=== PATIENT | female | born 1990 | race Caucasian/White ===

== ENCOUNTER 2017-04-20 21:59 | Emergency (ER) | payer SELFPAY ==
[2017-04-20] MEDS ORDERED: ALBUTEROL SULFATE HFA (90 MCG/PUFF) 8 GM MDI (1 MDI/ER DISP) IH PRN (22:56)
[2017-04-20] MEDS ORDERED: DEXAMETHASONE SOD PHOS INJ 10 MG/1 ML VIAL IM ONE (22:58)
--- NOTE | 2017-04-20 23:03 | ER Document Report ---
ED General - General Chief Complaint: Congestion Stated Complaint: THROAT,CHEST,EAR PAIN Time Seen by Provider: 04/20/17 22:47 Notes: Patient is a 18-year-old female presents with complaint of cough congestion sore throat and ear pain. Patient says symptoms started last 24 hours. She initially just had congestion but now has a lot of coughing and sore throat. She has a smoker. She says she stopped smoking since her symptoms started. She does not take any medications. She is otherwise healthy. She has no medical problems. She has no medical allergies. She says that she did start some dzwj-[id number]-iovoogt medication called Nexphed. She says her symptoms are worsening. No fever. TRAVEL OUTSIDE OF THE [place] IN LAST 30 DAYS: No - Related Data Allergies/Adverse Reactions: Shellfish * [Shellfish] Allergy (Intermediate, Verified 12/12/14 12:52) Past Medical History - Social History Smoking Status: Current Every Day Smoker Frequency of alcohol use: None Drug Abuse: None Family History: Reviewed & Not Pertinent Patient has suicidal ideation: No Patient has homicidal ideation: No Renal/ Medical History: Denies: Hx Peritoneal Dialysis Past Surgical History: Reports: Hx Oral Surgery - Immunizations Immunizations up to date: No Hx Diphtheria, Pertussis, Tetanus Vaccination: Yes Review of Systems - Review of Systems Notes: My Normal Review Basic REVIEW OF SYSTEMS: CONSTITUTIONAL : Denies fever, chills, or sweats. Denies recent illness. EENT: Nasal congestion, sore throat CARDIOVASCULAR: Chest pain with cough. RESPIRATORY: cough GASTROINTESTINAL: Denies abdominal pain. Denies nausea, vomiting, or diarrhea. Denies constipation. Last BM: MUSCULOSKELETAL: Denies neck or back pain or joint pain or swelling. SKIN: Denies rash or skin lesions. NEUROLOGICAL: Denies altered mental status or loss of consciousness. Denies headache. Denies weakness or paralysis or loss of use of either side. Denies problems with gait or speech. Denies sensory or motor loss. ALL OTHER SYSTEMS REVIEWED AND NEGATIVE. Physical Exam - Vital signs Vitals: Temp Pulse Resp BP Pulse Ox 98.5 F 103 H 16 148/104 H 97 04/20/17 22:06 04/20/17 22:06 04/20/17 22:06 04/20/17 22:06 04/20/17 22:06 - Notes Notes: General Appearance: Well nourished, alert, cooperative, no acute distress, no obvious discomfort. Audible nasal congestion. Obvious congestion on physical exam. Cough. Vitals: reviewed, See vital signs table. Head: no swelling or tenderness to the head Eyes: PERRL, EOMI, Conjuctiva clear Mouth: No decreasd moisture Ears: Tense tympanic membranes without significant erythema consistent with sreous otitis media. Throat: No tonsillar inflammation, No airway obstruction, No lymphadenopathy Neck: Supple, no neck tenderness, Lungs: No wheezing, No rales, No rhonci, No accessory muscle use, good air exchange bilaterally. Heart: Normal rate, Regular rythm, No murmur, no rub Extremities: strength 5/5 in all extremities, good pulses in all extremities, no swelling or tenderness in the extremities, no edema. Skin: warm, dry, appropriate color, no rash Neuro: speech clear, oriented x 3, normal affect, responds appropriately to questions. Course - Vital Signs Vital signs: Temp Pulse Resp BP Pulse Ox 98.5 F 103 H 16 148/104 H 97 04/20/17 22:06 04/20/17 22:06 04/20/17 22:06 04/20/17 22:06 04/20/17 22:06 - Transfer of Care Notes: 04/20/17 23:03 Patient has symptoms consistent with a URI with bronchitis. She has a lot of congestion on exam. Pharynx is not erythematous red. Her TMs are tense and are consistent with a serous otitis media. There is no evidence of a bacterial infectious otitis media. I will give her a dose of Decadron. I will have her stop taking the [id number] next ahead and place her on a higher dose of Sudafed. I encouraged her to take water when taking this. I encouraged her to continue to stop smoking. I will give her an inhaler being that she has recurrent dry cough and is a smoker. I encouraged to return to ER immediately if she has worsening of her symptoms, fevers, or feels unwell. Patient agrees with plan and will be discharged home. Dictation of this chart was performed using voice recognition software; therefore, there may be some unintended grammatical errors. Discharge - Discharge Clinical Impression: Bronchitis URI (upper respiratory infection) Qualifiers: URI type: unspecified URI Qualified Code(s): J06.9 - Acute upper respiratory infection, unspecified Condition: Good Disposition: HOME, SELF-CARE Additional Instructions: BRONCHITIS: You have acute bronchitis. This disease is an infection or inflammation of the air passageways in your lungs. Symptoms usually include cough, low grade fever, shortness of breath, and wheezing. The cough usually persists for a couple of weeks. Most cases of bronchitis get better without antibiotics. We prescribe antibiotics when we believe bacteria are damaging your airways, or if there's high risk the bronchitis will worsen into pneumonia. Increase your fluid intake. A cool mist humidifier may make your lungs more comfortable. An expectorant (cough medicine that loosens phlegm) can help. If you smoke, STOP!!! Recovery from bronchitis can be somewhat slow, but you should see improvement within a day or two. Repeated episodes of bronchitis may result in lung damage -- for example, chronic bronchitis, recurrent pneumonias, or emphysema. Call the doctor if you develop increasing fever, shortness of breath, chest pain, bloody sputum, or otherwise worsen. If you have not improved at all after several days, contact the physician. DECONGESTANT MEDICATION: A decongestant medicine has been prescribed. Often this medicine is combined in the same tablet with an antihistamine or expectorant. This type of medicine is helpful in treating a bad cold or sinus condition, as well as in treatment of the nasal congestion of hay fever. It is not of much benefit for lung infections. Decongestant medicines are related to stimulants. They can cause an increase in blood pressure and heart rate. Persons with heart disease and high blood pressure should not take decongestants without discussing this with the physician. INHALED BRONCHODILATORS: You have received a treatment of and/or prescription for an inhaled bronchodilator -- a medication which stimulates the airways in the lung to dilate. This improves the flow of air in asthma, bronchitis, and emphysema. These medicines have some similarity to adrenaline, and can cause similar side effects: shakiness, racing heart, and a sense of nervousness. These side effects decrease with time. Contact your doctor if these side effects are severe. Do not over-use the medicine. Too-frequent use of the inhaler may make it ineffective. Call your doctor if the inhaler is not controlling your symptoms at the prescribed doses. STEROID MEDICATION: You have been given an injection of or oral medicine of the cortisone/ steroid class. This medication is used to control inflammation or allergy. Izaiah t is usually only given for a short period of time, until the acute process subsides. There are usually no side effects from short-term use of cortisone-like medications. Some persons feel an increased sense of well-being and are not sleepy at bedtime. Long-term use of cortisone medications is best avoided, unless required for a severe condition. If your condition does not remit, or relapses after the course of corticosteroid medication, you should consult your physician. SMOKING: If you smoke, you should stop smoking. The tar and chemicals in cigarette smoke are harmful. Smoking has been shown to cause: emphysema chronic bronchitis lung cancer mouth and throat cancer stomach and pancreas cancer premature aging defects In addition, smoking increases ear and lung infections in children of smokers. FOLLOW-UP CARE: If you have been referred to a physician for follow-up care, call the physician s office for an appointment as you were instructed or within the next two days. If you experience worsening or a significant change in your symptoms, notify the physician immediately or return to the Emergency Department at any time for re-evaluation. Please return to the ER immediately if you develop fevers, difficulty breathing , vomiting, or feel that you are getting worse. Please use the inhaler as 2 puffs every 4 hours as needed for cough and/or wheezing. Prescriptions: Pseudoephedrine HCl 30 mg PO TID #20 tablet
[2017-04-20 23:19] VITALS: BP 136/96
== END 2017-04-20 23:20 | disposition home or self-care (01) ==
LOC: ER 21:59
DX: J06.9 Acute upper respiratory infection, unspecified (principal); J40 Bronchitis, not specified as acute or chronic; J02.9 Acute pharyngitis, unspecified; R05 Cough; R07.89 Other chest pain; R09.81 Nasal congestion; H92.09 Otalgia, unspecified ear; F17.200 Nicotine dependence, unspecified, uncomplicated; Z91.013 Allergy to seafood
CPT/HCPCS: 99283; 96372; J1100; J3490

== ENCOUNTER 2017-11-05 11:10 | Emergency (ER) | payer SELFPAY ==
[2017-11-05] MEDS ORDERED: ONDANSETRON 4 MG TAB.RAPDIS PO ONE (11:34)
[2017-11-05] MEDS ORDERED: HYDROCODONE/ACETAMINOPHEN 5-325 MG TABLET PO ONE (11:34)
[2017-11-05 11:58] LABS: ABSOLUTE BASOPHILS # (AUTO) 0.1 10^3/uL (0.0-0.2); ABSOLUTE EOSINOPHILS # (AUTO) 0.2 10^3/uL (0.0-0.6); ABSOLUTE LYMPHOCYTES (AUTO) 2.5 10^3/uL (0.5-4.7); ABSOLUTE MONOCYTES (AUTO) 0.6 10^3/uL (0.1-1.4); ABSOLUTE NEUT (AUTO) 6.4 10^3/uL (1.7-8.2); BASOPHILS % (AUTO) 0.9 % (0-2); EOSINOPHILS % (AUTO) 1.9 % (0-6); HEMATOCRIT 38.4 % (36.0-47.0); HEMOGLOBIN 13.2 g/dL (12.0-15.5); HGB HCT DIFFERENCE 1.2; LYMPHOCYTES % (AUTO) 25.4 % (13-45); MEAN CORPUSCULAR HEMOGLOBIN 30.4 pg (27.0-33.4); MEAN CORPUSCULAR HGB CONC 34.5 g/dL (32.0-36.0); MEAN CORPUSCULAR VOLUME 88 fl (80-97); MONOCYTES % (AUTO) 6.2 % (3-13); RED BLOOD COUNT 4.35 10^6/uL (3.72-5.28); RED CELL DISTRIBUTION WIDTH 14.5 % (11.5-14.0); SEGMENTED NEUTROPHILS % (AUTO) 65.6 % (42-78); WHITE BLOOD COUNT 9.8 10^3/uL (4.0-10.5)
[2017-11-05 12:03] LABS: APPEARANCE,URINE CLEAR; BILIRUBIN,URINE NEGATIVE (NEGATIVE); GLUCOSE, URINE NEGATIVE (NEGATIVE); KETONES,URINE NEGATIVE (NEGATIVE); LEUKOCYTE ESTERASE,URINE NEGATIVE (NEGATIVE); NITRITE,URINE NEGATIVE (NEGATIVE); PROTEIN,URINE NEGATIVE (NEGATIVE); URINE SPECIFIC GRAVITY 1.019
[2017-11-05 12:15] LABS: ALANINE AMINOTRANSFERASE 33 U/L (9-52); ALBUMIN 4.4 g/dL (3.5-5.0); ALKALINE PHOSPHATASE 59 U/L (38-126); ANION GAP 11 (5-19); ASPARTATE AMINO TRANSFERASE 22 U/L (14-36); BILIRUBIN,DIRECT 0.1 mg/dL (0.0-0.4); BILIRUBIN,TOTAL 0.7 mg/dL (0.2-1.3); BLOOD UREA NITROGEN 17 mg/dL (7-20); CALCIUM 10.2 mg/dL (8.4-10.2); CARBON DIOXIDE 27 mmol/L (22-30); CHLORIDE 104 mmol/L (98-107); CREATININE RESULT 0.83 mg/dL (0.52-1.25); GLUCOSE 91 mg/dL (75-110); POTASSIUM 4.2 mmol/L (3.6-5.0); SODIUM 141.8 mmol/L (137-145); TOTAL PROTEIN 7.2 g/dL (6.3-8.2)
--- NOTE | 2017-11-05 13:53 | RADIOLOGY REPORT (SQ) ---
EXAM DESCRIPTION: CT ABD/PELVIS NO ORAL OR IV COMPLETED DATE/TIME: 11/05/2017 1:20 pm REASON FOR STUDY: left flank pain COMPARISON: Pelvic ultrasound 07/20/2012, 08/09/2011 TECHNIQUE: CT scan of the abdomen and pelvis performed without intravenous or oral contrast. Images reviewed with lung, soft tissue, and bone windows. Reconstructed coronal and sagittal MPR images revi ewed. All images stored on PACS. All CT scanners at this facility use dose modulation, iterative reconstruction, and/or weight based d osing when appropriate to reduce radiation dose to as low as reasonably achievable (ALARA). [facility]: Dose Right [facility]: CareDose [facility]: Dose Right [facility]: Teradose 4D [facility]: Smart Nu-B-2B RADIATION DOSE: CT Rad equipment meets quality standard of care and radiation dose reduction techniq ues were employed. CTDIvol: 22.7 mGy. DLP: 1256 mGy-cm.mGy. LIMITATIONS: None. FINDINGS: LOWER CHEST: Small hiatal hernia. Minimal rays basilar atelectasis. NON-CONTRASTED LIVER, SPLEEN, ADRENALS: Evaluation limited by lack of IV contrast. No identified sign ificant masses. PANCREAS: No masses. No peripancreatic inflammatory changes. GALLBLADDER: No identified stones by CT criteria. No inflammatory changes to suggest cholecystitis. RIGHT KIDNEY AND URETER: No suspicious masses. Assessment limited by lack of IV contrast. No signif icant calcifications. No hydronephrosis or hydroureter. LEFT KIDNEY AND URETER: No suspicious masses. Assessment limited by lack of IV contrast. No signifi cant calcifications. No hydronephrosis or hydroureter. AORTA AND RETROPERITONEUM: No aneurysm. No retroperitoneal masses or adenopathy. BOWEL AND PERITONEAL CAVITY: No obvious masses or inflammatory changes. No free fluid. APPENDIX: Normal. PELVIS, BLADDER, AND ABDOMINAL WALL:No free fluid. No adenopathy. Uterus, right ovary unremarkable. In the left adnexa, a 6.6 x 6.6 cm cyst is present, either a left ovarian cyst or para ovarian cyst . Small fat containing umbilical hernia BONES: No significant findings. OTHER: No other significant finding. IMPRESSION: Left ovary a cyst or paraovarian cyst. No CT evidence of urinary stones, hydronephrosis, or hydroureter. COMMENT: Quality ID # [id number]: Final reports with documentation of one or more dose reduction techniques (e.g., Automated exposure control, adjustment of the mA and/or kV according to patient size, use of iterative reconstruction technique) TECHNICAL DOCUMENTATION: JOB ID: [id number] [employer]- All Rights Reserved
--- NOTE | 2017-11-05 14:18 | ER Document Report ---
ED General - General Chief Complaint: Pain With Urination Stated Complaint: ABDOMINAL PAIN Time Seen by Provider: 11/05/17 11:33 Mode of Arrival: Ambulatory Information source: Patient Notes: Patient presents with 4-5 days of left lower quadrant pain that radiates to her back. She states it is crampy and intermittent. Nothing makes it better or worse. She has some burning with urination but no blood in her urine. No problems with bowel movements. No vomiting. Pain is been moderate in severity. No vaginal bleeding or discharge. TRAVEL OUTSIDE OF THE [place] IN LAST 30 DAYS: No - Related Data Allergies/Adverse Reactions: Shellfish * [Shellfish] Allergy (Intermediate, Verified 11/05/17 11:10) Home Medications: Current Home Medications B12/FA/D3/Calc Cit/Zn Aa Chelt [Rx Balance Int Capsule] 1 tab PO DAILY 11/05/17 [History] Past Medical History - General Information source: Patient Last Menstrual Period: 10/24/17 - Social History Smoking Status: Current Every Day Smoker Frequency of alcohol use: Occasional Drug Abuse: None Family History: Reviewed & Not Pertinent Patient has suicidal ideation: No Patient has homicidal ideation: No - Past Medical History Cardiac Medical History: Reports: Hx Hypertension Pulmonary Medical History: Reports: Hx Asthma Renal/ Medical History: Denies: Hx Peritoneal Dialysis Past Surgical History: Reports: Hx Oral Surgery - Immunizations Immunizations up to date: No Hx Diphtheria, Pertussis, Tetanus Vaccination: Yes Review of Systems - Review of Systems Constitutional: denies: Chills, Fever Cardiovascular: denies: Chest pain, Palpitations Respiratory: denies: Cough, Short of breath -: Yes All other systems reviewed and negative Physical Exam - Vital signs Vitals: Temp Pulse Resp BP Pulse Ox 98.8 F 97 16 146/98 H 95 11/05/17 11:16 11/05/17 11:16 11/05/17 11:16 11/05/17 11:16 11/05/17 11:16 Interpretation: Normal - General General appearance: Appears well, Alert In distress: None - HEENT Head: Normocephalic, Atraumatic Eyes: Normal Pupils: PERRL - Respiratory Respiratory status: No respiratory distress Chest status: Nontender Breath sounds: Normal Chest palpation: Normal - Cardiovascular Rhythm: Regular Heart sounds: Normal auscultation Murmur: No - Abdominal Inspection: Normal Distension: No distension Bowel sounds: Normal Tenderness: Tender - Some mild left lower quadrant tenderness to palpation. No rebound or guarding. Organomegaly: No organomegaly - Back Back: Normal, Nontender - Extremities General upper extremity: Normal inspection, Nontender, Normal color, Normal ROM , Normal temperature General lower extremity: Normal inspection, Nontender, Normal color, Normal ROM , Normal temperature, Normal weight bearing. No: Jared's sign - Neurological Neuro grossly intact: Yes Cognition: Normal Orientation: AAOx4 [place] Coma Scale Eye Opening: Spontaneous [place] Coma Scale Verbal: Oriented [place] Coma Scale Motor: Obeys Commands [place] Coma Scale Total: 15 Speech: Normal Motor strength normal: LUE, RUE, LLE, RLE Sensory: Normal - Psychological Associated symptoms: Normal affect, Normal mood - Skin Skin Temperature: Warm Skin Moisture: Dry Skin Color: Normal Course - Vital Signs Vital signs: Temp Pulse Resp BP Pulse Ox 98.8 F 97 16 146/98 H 95 11/05/17 11:16 11/05/17 11:16 11/05/17 11:16 11/05/17 11:16 11/05/17 11:16 - Laboratory Result Diagrams: 11/05/17 11:44 11/05/17 11:44 Laboratory results interpreted by me: 11/05/17 11/05/17 11:44 11:44 RDW 14.5 H Urine Urobilinogen 4.0 H - Diagnostic Test Radiology reviewed: Image reviewed, Reports reviewed - CT shows no evidence of acute pathology other than a left ovarian cyst Discharge - Discharge Clinical Impression: Left ovarian cyst Condition: Stable Disposition: HOME, SELF-CARE Instructions: Ovarian Cyst ([facility]) Additional Instructions: Your blood pressure is elevated. Please have this rechecked within 1 week by your doctor. Prescriptions: Hydrocodone/Acetaminophen [[place] 5-325 mg Tablet] 1 tab PO Q6 PRN #14 tablet PRN Reason: Forms: Return to Work, Elevated Blood Pressure Referrals: EL AVILEZ MD [COMMUNITY BASED STAFF] - Follow up as needed
[2017-11-05 14:24] VITALS: BP 147/105
== END 2017-11-05 14:25 | disposition home or self-care (01) ==
LOC: ER 11:10
DX: N83.202 Unspecified ovarian cyst, left side (principal); R10.32 Left lower quadrant pain; R30.0 Dysuria; I10 Essential (primary) hypertension; J45.909 Unspecified asthma, uncomplicated; F17.200 Nicotine dependence, unspecified, uncomplicated; Z91.013 Allergy to seafood
CPT/HCPCS: 99284; 36415; 85025; 81025; 80053; 81001; 74176; S0119

== ENCOUNTER 2019-05-30 14:14 | Emergency (ER) | payer SELFPAY ==
[2019-05-30] MEDS ORDERED: IBUPROFEN 400 MG TABLET PO ONE (16:21)
--- NOTE | 2019-05-30 16:21 | ER Document Report ---
ED Medical Screen (RME) - General Chief Complaint: Leg Pain Stated Complaint: LEG PAIN Time Seen by Provider: 05/30/19 16:19 Mode of Arrival: Ambulatory Information source: Patient Notes: 28-year-old female presented to ED for an infected tattoo to the left side. She states the tattoo was done on Thursday the redness and discomfort started on and has steadily increased since then. She states she did have a fever over the last couple days. She states she took ibuprofen 400 mg at noon today. She denies any past medical history. She is a former smoker does not smoke now and does not drink or do any kind of drugs. We will get blood urine and give her an additional 400 mg of ibuprofen and she will get seen by another provider. I have greeted and performed a rapid initial assessment of this patient. A comprehensive ED assessment and evaluation of the patient, analysis of test results and completion of medical decision making process will be conducted by an additional ED providers. Dictation of this chart was performed using voice recognition software; therefore, there may be some unintended grammatical errors. TRAVEL OUTSIDE OF THE [place] IN LAST 30 DAYS: No - Related Data Allergies/Adverse Reactions: Shellfish * [Shellfish] Allergy (Intermediate, Verified 11/05/17 11:10) Past Medical History - Past Medical History Cardiac Medical History: Reports: Hx Hypertension Pulmonary Medical History: Reports: Hx Asthma Renal/ Medical History: Denies: Hx Peritoneal Dialysis Past Surgical History: Reports: Hx Oral Surgery - Immunizations Immunizations up to date: No Hx Diphtheria, Pertussis, Tetanus Vaccination: Yes Physical Exam - Vital signs Vitals: Temp Pulse Resp BP Pulse Ox 98.6 F 85 21 H 150/98 H 95 05/30/19 15:04 05/30/19 15:04 05/30/19 15:04 05/30/19 15:04 05/30/19 15:04 Course - Vital Signs Vital signs: Temp Pulse Resp BP Pulse Ox 98.6 F 85 21 H 150/98 H 95 05/30/19 15:04 05/30/19 15:04 05/30/19 15:04 05/30/19 15:04 05/30/19 15:04
[2019-05-30] MEDS ORDERED: OXYCODONE-ACETAMINOPHEN 5-325 MG TABLET PO ONE (16:22)
[2019-05-30 17:16] LABS: ABSOLUTE BASOPHILS # (AUTO) 0.1 10^3/uL (0.0-0.2); ABSOLUTE EOSINOPHILS # (AUTO) 0.2 10^3/uL (0.0-0.6); ABSOLUTE LYMPHOCYTES (AUTO) 2.4 10^3/uL (0.5-4.7); ABSOLUTE MONOCYTES (AUTO) 0.6 10^3/uL (0.1-1.4); ABSOLUTE NEUT (AUTO) 9.7 10^3/uL (1.7-8.2); BASOPHILS % (AUTO) 0.8 % (0-2); EOSINOPHILS % (AUTO) 1.5 % (0-6); HEMATOCRIT 39.5 % (36.0-47.0); HEMOGLOBIN 13.3 g/dL (12.0-15.5); LYMPHOCYTES % (AUTO) 18.7 % (13-45); MEAN CORPUSCULAR HGB CONC 33.7 g/dL (32.0-36.0); MEAN CORPUSCULAR VOLUME 89 fl (80-97); MONOCYTES % (AUTO) 4.8 % (3-13); PLATELET COUNT 437 10^3/uL (150-450); RED BLOOD COUNT 4.44 10^6/uL (3.72-5.28); RED CELL DISTRIBUTION WIDTH 13.1 % (11.5-14.0); SEGMENTED NEUTROPHILS % (AUTO) 74.2 % (42-78); TOTAL CELLS COUNTED % (AUTO) 100 %
[2019-05-30 17:25] LABS: APPEARANCE,URINE CLEAR; BILIRUBIN,URINE NEGATIVE (NEGATIVE); COLOR,URINE YELLOW; GLUCOSE, URINE NEGATIVE (NEGATIVE); KETONES,URINE NEGATIVE (NEGATIVE); LEUKOCYTE ESTERASE,URINE NEGATIVE (NEGATIVE); NITRITE,URINE NEGATIVE (NEGATIVE); PROTEIN,URINE NEGATIVE (NEGATIVE); URINE SPECIFIC GRAVITY 1.018; UROBILINOGEN,URINE NEGATIVE mg/dL (<2.0)
[2019-05-30 17:28] LABS: ALANINE AMINOTRANSFERASE 29 U/L (9-52); ALBUMIN 4.4 g/dL (3.5-5.0); ALKALINE PHOSPHATASE 66 U/L (38-126); ANION GAP 9 (5-19); ASPARTATE AMINO TRANSFERASE 23 U/L (14-36); BILIRUBIN,DIRECT 0.2 mg/dL (0.0-0.4); BILIRUBIN,TOTAL 0.4 mg/dL (0.2-1.3); BLOOD UREA NITROGEN 23 mg/dL (7-20); CALCIUM 9.5 mg/dL (8.4-10.2); CARBON DIOXIDE 26 mmol/L (22-30); CHLORIDE 102 mmol/L (98-107); GLUCOSE 91 mg/dL (75-110); POTASSIUM 3.5 mmol/L (3.6-5.0); SODIUM 137.4 mmol/L (137-145); TOTAL PROTEIN 7.8 g/dL (6.3-8.2)
--- NOTE | 2019-05-30 18:04 | RADIOLOGY REPORT (SQ) ---
EXAM DESCRIPTION: U/S EXTREMITY NONVASCULAR LTD COMPLETED DATE/TIME: 05/30/2019 5:47 pm REASON FOR STUDY: Left thigh infection COMPARISON: None. TECHNIQUE: Dynamic and static grayscale images acquired of the localized site of clinical concern an d recorded on PACS. Additional selected color Doppler and spectral images recorded. SITE OF CONCERN: Left medial thigh LIMITATIONS: None. FINDINGS: SKIN AND SUBCUTANEOUS TISSUES: Subcutaneous indurated soft tissue. No focal fluid collect ion is identified. . OTHER: No other significant finding. IMPRESSION: Subcutaneous indurated soft tissue. No focal fluid collection is identified. TECHNICAL DOCUMENTATION: JOB ID: [id number] [place]-72 2010 [employer]- All Rights Reserved Reading location - IP/workstation name: [email or web address]
[2019-05-30 19:45] VITALS: BP 135/94
[2019-05-30] MEDS ORDERED: DOXYCYCLINE HYCLATE 100 MG TABLET PO ONE (20:01)
--- NOTE | 2019-05-30 20:08 | ER Document Report ---
ED General - General Chief Complaint: Leg Pain Stated Complaint: LEG PAIN Time Seen by Provider: 05/30/19 16:19 Mode of Arrival: Ambulatory TRAVEL OUTSIDE OF THE [place] IN LAST 30 DAYS: No - HPI Notes: Patient is a 28-year-old female presents emergency department for evaluation. S he had a new tattoo done 6 days ago. 4 days ago she started noticing redness and increased pain. She states is worsened since then. She is had some chills but no cesar fevers. No nausea or vomiting. She states the pain is now spreading back behind her knee. She is been trying ibuprofen at home without any significant relief. She states the tattoo was done in a professional shop with professional equipment. - Related Data Allergies/Adverse Reactions: Shellfish * [Shellfish] Allergy (Intermediate, Verified 11/05/17 11:10) hydrocodone Allergy (Verified 05/30/19 16:23) Past Medical History - General Information source: Patient - Social History Smoking Status: Former Smoker Frequency of alcohol use: None Drug Abuse: None Family History: Reviewed & Not Pertinent Patient has suicidal ideation: No Patient has homicidal ideation: No - Past Medical History Cardiac Medical History: Reports: Hx Hypertension Pulmonary Medical History: Reports: Hx Asthma Renal/ Medical History: Denies: Hx Peritoneal Dialysis Past Surgical History: Reports: Hx Oral Surgery - Immunizations Immunizations up to date: No Hx Diphtheria, Pertussis, Tetanus Vaccination: Yes Review of Systems - Review of Systems Constitutional: See HPI EENT: No symptoms reported Cardiovascular: No symptoms reported Respiratory: No symptoms reported Gastrointestinal: No symptoms reported Genitourinary: No symptoms reported Female Genitourinary: No symptoms reported Musculoskeletal: No symptoms reported Skin: See HPI Neurological/Psychological: No symptoms reported Physical Exam - Vital signs Vitals: Temp Pulse Resp BP Pulse Ox 98.6 F 85 21 H 150/98 H 95 05/30/19 15:04 05/30/19 15:04 05/30/19 15:04 05/30/19 15:04 05/30/19 15:04 - Notes Notes: Vital signs reviewed, please refer to chart. Head is normocephalic, atraumatic. Pupils equal round, reactive to light. Neck is supple without meningismus. Heart is regular rate and rhythm. Lungs are clear to auscultation bilaterally. Abdomen is soft, nontender, normoactive bowel sounds throughout. Extremities without cyanosis, clubbing. Posterior calves are nontender. Peripheral pulses are equal. Examination of the skin yields multiple tattoos. Focus on the area of chief complaint yields a new tattoo approximately 8 x 14 cm in length, all surrounded by significant erythema. There is palpable induration. There is some open areas consistent with recent tattoo placement, but I cannot palpate a fluctuance. There is no visible drainage. There is no regional adenopathy. Course - Re-evaluation Re-evalutation: 05/30/19 20:04 Patient presented to the emergency department for evaluation. She is a 28-year-old female without any significant medical issues who clearly has a cellulitis. She does not have any focal drainable abscess. She is a mild leukocytosis but otherwise blood work is unremarkable. I did go ahead and start her on doxycycline. I will send her home with a prescription for same. She is to follow-up with primary care, return to the ED with worsening or new concerning symptoms of any sort. - Vital Signs Vital signs: Temp Pulse Resp BP Pulse Ox 98.3 F 73 16 135/94 H 98 05/30/19 19:00 05/30/19 19:00 05/30/19 19:00 05/30/19 19:00 05/30/19 19:00 - Laboratory Result Diagrams: 05/30/19 16:57 05/30/19 16:57 Laboratory results interpreted by me: 05/30/19 05/30/19 16:57 16:57 WBC 13.0 H Absolute Neutrophils 9.7 H Potassium 3.5 L BUN 23 H - Diagnostic Test Radiology reviewed: Reports reviewed Radiology results interpreted by me: 05/30/19 20:04 Extremity Ultrasound 05/30/19 16:23 IMPRESSION: Subcutaneous indurated soft tissue. No focal fluid collection is identified. Discharge - Discharge Clinical Impression: Cellulitis of left lower extremity Condition: Stable Disposition: HOME, SELF-CARE Instructions: Cellulitis ([facility]) Additional Instructions: Take all the antibiotics as prescribed until gone. Percocet as needed for severe pain. Continue your ibuprofen. Follow-up with primary care next week, return to the ED with worsening or new concerning symptoms.
== END 2019-05-30 20:19 | disposition home or self-care (01) ==
LOC: ER 14:14
DX: L03.116 Cellulitis of left lower limb (principal); D72.829 Elevated white blood cell count, unspecified; I10 Essential (primary) hypertension; J45.909 Unspecified asthma, uncomplicated; Z91.013 Allergy to seafood; Z88.5 Allergy status to narcotic agent; Z87.891 Personal history of nicotine dependence
CPT/HCPCS: 36415; 76882; 80053; 81001; 82962; 84703; 85025; 87040; 99284